=== PATIENT | male | born 1955 | race Caucasian/White ===

== ENCOUNTER 2019-07-08 11:52 | Outpatient (CLI) | payer OTHER ==
[2015-01-12 19:57] VITALS: BP 109/84
[2019-07-19 11:47] LABS: BASOPHILS % 0.7 % (0.0-1.5); BASOPHILS % 1 % (0-2); NEUTROPHILS # 4.6 # k/uL (1.4-7.7); SEGMENTED NEUTROPHILS % 50 % (39-79)
[2019-07-19 11:48] LABS: A1C 13.3 % (<5.7); HDL 44 mg/dL (>40); eGFR (Non-African) > 60
== END 2019-07-08 12:05 ==
LOC: LAB 11:52
PROVIDERS: ATTEND Nurse Practitioner Family
DX: E03.9 Hypothyroidism, unspecified (principal); I10 Essential (primary) hypertension; E11.9 Type 2 diabetes mellitus without complications
CPT/HCPCS: 36415; 80053; 80061; 83036; 84439; 84443; 84481; 85025

== ENCOUNTER 2019-08-22 09:07 | Outpatient (CLI) | payer OTHER ==
[2015-01-12 19:57] VITALS: BP 109/84
--- NOTE | 2019-08-22 16:26 | Diagnostic Imaging Report ---
PATIENT MR#: [id number] PATIENT PATIENT NAME: Moses Kaiser DATE OF : 1955 REFERRING PHYSICIAN: Praveena Garcia EXAM DATE: 08/22/2019 ACCESSION NUMBER: [id number] EXAM DESCRIPTION: C SPINE 4 VIEWS OR MORE HISTORY: CERVICALGIA COMPARISON: No relevant comparison is available at the time of interpretation. C-SPINE XRAY, 7 views including obliques and flexion-extension: Vertebral bodies: No compression deformities. The dens is intact and the lateral masses are symmetric . Disc spaces: Moderate-severe degenerative disc disease at C4-5, C5-6 and C6-7. Alignment: Straightening of the normal cervical lordosis. Minimal grade 1 anterolisthesis of C2 over C3, and C3 over C4. Mild grade 1 retrolisthesis of C4 over C5 which appears stable in flexion extension Neural foramina: Bilateral neural foraminal stenosis at C3-4, C4-5, C5-6 and C6-7 on the basis of fac et arthrosis and degenerative disc disease. IMPRESSION: 1. Straightening of the normal cervical lordosis with grade 1 retrolisthesis of C4 over C5. 2. Degenerative disc disease more pronounced at C4-5, C5-6 and C6-7. 3. Bilateral neural foraminal stenosis at C3-4, C4-5, C5-6 and C6-7. Read by: Dr. Esau Dao Transcribed by: Esau Dao Transcribed Date: 08/22/2019 4:25:13 PM Electronically signed by: Dr. Esau Dao Date signed: 08/22/2019 4:25:31 PM
--- NOTE | 2019-08-22 16:27 | Diagnostic Imaging Report ---
PATIENT MR#: [id number] PATIENT PATIENT NAME: Moses Kaiser DATE OF : 1955 REFERRING PHYSICIAN: Praveena Garcia EXAM DATE: 08/22/2019 ACCESSION NUMBER: [id number] EXAM DESCRIPTION: T SPINE 3 VIEWS HISTORY: LOW THORACIC SPINE PAIN, THORACIC RADICULITIS VS RADICULOPATHY. COMPARISON: No relevant comparison is available at the time of interpretation. T-SPINE XRAY, 3 Views: Vertebral bodies: No compression deformities. Disc spaces: Mild thoracic degenerative disc spondylosis. Alignment: Mild thoracic dextrocurvature. Normal thoracic kyphosis without listhesis. IMPRESSION: Mild thoracic dextrocurvature and mild spondylosis. Read by: Dr. Esau Dao Transcribed by: Esau Dao Transcribed Date: 08/22/2019 4:27:07 PM Electronically signed by: Dr. Esau Dao Date signed: 08/22/2019 4:27:07 PM
--- NOTE | 2019-08-22 16:39 | Diagnostic Imaging Report ---
PATIENT MR#: [id number] PATIENT PATIENT NAME: Moses Kaiser DATE OF : 1955 REFERRING PHYSICIAN: Praveena Garcia EXAM DATE: 08/22/2019 ACCESSION NUMBER: [id number] EXAM DESCRIPTION: L SPINE 6 VIEWS CLINICAL HISTORY: LUMBAGO, LUMBAR RADICULITIS VS RADICULOPATHY. COMPARISON: No relevant comparison is available at the time of interpretation. L-SPINE XRAY, 6 views including obliques and flexion - extension: Vertebral bodies: No compression deformities. Disc spaces: Severe degenerative disc narrowing at L2-3. Moderate-severe degenerative disc narrowing at L3-4 and L4-5. Alignment: Mild-moderate levocurvature centered at L3-4. Straightening of the normal lumbar lordosis. Mild grade 1 anterolisthesis of L2 over L3 which increases slightly with flexion. Mild grade 1 retrolisthesis of L 3 over L4 which is relatively stable in flexion extension. Facets: Degenerative arthrosis at L4-5 and L5-S1. Abdomen: Cholecystectomy clips. 9 mm calcification superimposed over the right renal lower pole. Aorta: Calcifications are noted within the vessels indicating an element of arteriosclerosis. IMPRESSION: 1. Mild-moderate lumbar levocurvature. 2. Grade 1 anterolisthesis of L2 which increases slightly with flexion. 3. Grade 1 retrolisthesis of L3 over L4. 4. Advanced lumbar degenerative disc disease at L2-3, L3-4 and L4-5. 5. Lumbar facet arthrosis. 6. Right nephrolithiasis. Read by: Dr. Esau Dao Transcribed by: Esau Dao Transcribed Date: 08/22/2019 4:39:18 PM Electronically signed by: Dr. Esau Dao Date signed: 08/22/2019 4:39:22 PM
--- NOTE | 2019-08-22 16:42 | Diagnostic Imaging Report ---
PATIENT MR#: [id number] PATIENT PATIENT NAME: Moses Kaiser DATE OF : 1955 REFERRING PHYSICIAN: Praveena Garcia EXAM DATE: 08/22/2019 ACCESSION NUMBER: [id number] EXAM DESCRIPTION: PELVIS AP 1 OR 2 VIEWS HISTORY: PAIN IN LOW BACK COMPARISON: No pertinent prior studies are available at this time. PELVIS XRAY, FRONTAL VIEW: Pelvic bone: Intact appearance. No significant pelvic tilt. Pelvic soft tissue: No calcifications along the expected course of the ureters. Hips: No fracture or dislocation. IMPRESSION: Intact pelvis. Read by: Dr. Esau Dao Transcribed by: Esau Dao Transcribed Date: 08/22/2019 4:41:49 PM Electronically signed by: Dr. Esau Dao Date signed: 08/22/2019 4:41:49 PM
--- NOTE | 2019-08-23 14:54 | OP Clinic Progress Note ---
DATE OF VISIT: 08/22/2019 CHIEF COMPLAINT: Mid-to-low back pain. HISTORY OF PRESENT ILLNESS: Moses Tomlinson" is a 63-year-old male patient here for evaluation of his mid-to-low back pain. The patient tells me that his back pain has been present for approximately the last two years. His pain has been progressively worsening without any known incident starting his pain off. The patient tells me that his back pain is constant, aching, sharp, shooting and burning at times. His pain radiates around to his right ribs and down to bilateral hips. He does have numbness and tingling in bilateral lateral thighs right greater than left as well as bilateral feet numbness and tingling. The patient does complain of bilateral lower extremity weakness and stumbling. He denies any urinary incontinence, bowel incontinence or saddle anesthesia. He has used a cane in the past for assistance, however, lost his cane. His pain is worse with standing or sitting too long. His pain is improved with hot baths and a stretching program that he does daily. The patient has not completed any formal physical therapy in the last year, rather he has continued the home stretching program. His stretching program does help his pain in his low back. The patient has also seen a chiropractor with improvement in his pain symptoms, however, he cannot afford the bhb-an-vltqap cost for this. He was seen at the [facility] and they diagnosed him with an L2 compression fracture. The patient does report that he did fall in October but did not ever seek care. The [facility] apparently did order an MRI however, the patient did not complete this. The patient has not had any other interventional pain procedures to treat his pain. Additional pain areas include neck, left shoulder and bilateral hips. The patient occasionally takes aspirin for his pain symptoms with improvement. PAST MEDICAL HISTORY: Includes back pain, neck pain, depression, type 2 diabetes, fibromyalgia, history of gallbladder disease with subsequent cholecystectomy, GERD, hyperlipidemia and hypothyroidism. PAST SURGICAL HISTORY: Includes the cholecystectomy in 1998 as well as tonsillectomy when he was 9 to 11 years old. FAMILY HISTORY: Mother had cancer, diabetes and hyperlipidemia. Father had cancer, diabetes and hyperlipidemia. SOCIAL HISTORY: The patient is . 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 Tobacco use is current one pack per day times 40 years. ETOH use is occasionally once every two months or so and recreational drug use is current methamphetamine. Last use was one week ago. DRUG ALLERGIES: Include gabapentin which causes suicidal ideation. CURRENT MEDICATIONS: Levothyroxine 50 mcg one p.o. q. day, Humalog insulin 10 units before meals, Lantus 10 units q h.s., atorvastatin 40 mg q day and omeprazole 40 mg p.o. q day. REVIEW OF SYSTEMS: A complete 14-point review of systems was completed and positive for fatigue, weakness, weight loss, decreased appetite, loss of hearing, constant throat clearing, blurry vision, wheezing, night sweats, nausea, heartburn, constipation, stomach pain, hemorrhoids, frequent laxative/enema use, dizziness, leg weakness, sensitivity of feet, ambulation assistance with a cane, back pain, neck pain, joint pain, joint stiffness and joint swelling. OBJECTIVE: General: This is an elderly thin male patient presenting in no acute distress. Vital Signs: The patient is 5 feet 9 inches tall, weighs 154 pounds. Temperature is 98.4, pulse 96, respiratory rate is 18, blood pressure is 107/80 with an SaO2 of 97% on room air. He is rating his pain at 7/10 today. Psych: He is alert and oriented x3. He is calm, pleasant and cooperative. HEENT: He is normocephalic and atraumatic. Pupils are equal and round without miosis. Sclerae clear. Trachea is midline. There is no lymphadenopathy or thyromegaly. Cardiovascular: Normal S1, S2. No murmurs, gallops or rubs. Pulmonary: Nonlabored respirations at rest. Lungs are clear to auscultation throughout, diminished in bilateral posterior bases. GI: Abdomen is soft, nontender and nondistended with bowel sounds present in all four quadrants. : Deferred. Musculoskeletal: The patient achieves full lumbar flexion with pain upon returning to the upright position. He has full lumbar extension with low back pain. Bilateral Maxwell's is positive with axial low back pain only. Bilateral seated slump raise positive for muscle stretching in his hamstrings, but no low back pain or shooting pain. Seated straight leg raise is negative. The patient is tender to palpation about the T11-12, T12-L1, L1-2, L2-3 and L3-4 levels bilaterally. On lower extremity strength testing on the right, his hip flexion is graded 4/5, knee extension is 5/5, knee flexion is 5/5, dorsiflexion is 4/5 and plantar flexion is 5/5. On the left, hip flexion is 5/5, knee extension is 5/5, knee flexion is 5/5, dorsiflexion is 4/5 and plantar flexion is 5/5. He does have decreased sensation in bilateral feet. Gait is very antalgic. Station is slumped forward. There were no obvious deformities on inspection of the cervical, thoracic or lumbar spine. Bilateral patellar reflexes are 1+. Neuro: Cranial nerves II through XII are grossly intact. ASSESSMENT: 1. Lumbago. 2. Lumbar radiculitis versus radiculopathy. 3. Low thoracic spine pain. 4. Thoracic radiculitis versus radiculopathy. 5. Cervicalgia. 6. Diabetes type 2 not controlled. PLAN: 1. I have ordered a lumbar x-ray series to include flexion, extension and obliques. 2. I have ordered an AP pelvis x-ray. 3. I have ordered a thoracic spine x-ray series. 4. I have ordered a C-spine x-ray series to include extension, flexion, obliques and odontoid views. 5. I have ordered an MRI without contrast of the thoracic spine. 6. I have ordered an MRI without contrast of the lumbar spine. 7. The patient is to continue his current home exercise program. 8. The patient is to follow up in one month or sooner if needed. The patient verbalizes understanding and agrees to the current treatment plan. ARIANE Wagnerurse Practitioner /[employer] [id number] jrd cc: Kristopher Ernst MD MTDD
== END 2019-08-22 10:07 | disposition home or self-care (01) ==
LOC: OUT 09:07
PROVIDERS: ATTEND Nurse Practitioner Adult Health
DX: M54.5 Low back pain (principal); M54.6 Pain in thoracic spine; M54.2 Cervicalgia; E11.9 Type 2 diabetes mellitus without complications
CPT/HCPCS: 72050; 72072; 72170; 99213

== ENCOUNTER 2019-09-05 07:56 | Day surgery (SDC) | payer OTHER ==
[2015-01-12 19:57] VITALS: BP 109/84
[2019-09-05] MEDS ORDERED: LACTATED RINGERS 1,000 ML IV.SOLN IV ONE (08:48)
[2019-09-05] MEDS ORDERED: LIDOCAINE HCL 2% PF 100MG/5ML VIAL IJ ONE (08:48)
[2019-09-05] MEDS ORDERED: PROPOFOL 200 MG/20 ML VIAL IV ONE (08:48)
--- NOTE | 2019-09-09 06:30 | GI Report ---
OPERATIVE/PROCEDURE REPORT PATIENT NAME: ADRIAN VERAS DATE OF : 1955 CHART#: [id number] DATE OF PROCEDURE: 09/05/2019 REFERRING PHYSICIAN: Dr. Ernst PROCEDURE PERFORMED: Endoscopy. SURGEON: Daniele Banda M.D., Janki INDICATION FOR PROCEDURE: This 63-year-old man is referred for his first colonoscopy. He does tend towards constipation, and sometimes has to take things. Occasionally there is some blood in the stool. He has never had his colon looked at before. He does have a number of issues including chronic back pain, COPD, chronic smoker. He has had compression fractures of L2. PROCEDURE MEDICATION: Propofol, as per Anesthesia. DESCRIPTION OF PROCEDURE: The Olympus video endoscope was passed through the esophagus under direct visualization. He has grade 2 esophagitis, no obvious Barretts. His stomach was entered. He does have significant gastritis with a number of erosions, superficial ulceration. We did take biopsies. Also, severe duodenitis took biopsies in the duodenum also. The patient tolerated the procedure well. FINDINGS: 1. Severe gastritis, duodenitis. 2. He also has esophagitis. RECOMMENDATIONS: 1. Discontinue smoking tobacco. 2. Take a PPI daily like omeprazole. 3. Follow up biopsies with Dr. Ernst. DANIELE BANDA M.D., F.AugustaCBiancaP. Guevara R: 09/07/19 Job#: [id number] Cc: Dr. Klever SALAZAR
--- NOTE | 2019-09-09 06:37 | GI Report ---
DATE OF PROCEDURE: 09/05/2019 REFERRING PHYSICIAN: Dr. Ernst PROCEDURE PERFORMED: Colonoscopy. SURGEON: Daniele Banda M.D., F.Jennifer.C.P. INDICATION FOR PROCEDURE: This is a screening colonoscopy, though he has had constipation, and occasionally blood in the stool. PROCEDURE MEDICATION: Propofol, as per Anesthesia. DESCRIPTION OF PROCEDURE: On exam he has some prolapsed hemorrhoids, and a lax anal canal. An Olympus video colonoscope was advanced into the rectum and slowly advanced all the way to the cecum. The appendiceal orifice and ileocecal valve were normal. On slow withdrawal the cecum, ascending colon and transverse colon, no obvious intraluminal lesions were noted. Descending colon and sigmoid: Some redundancy. No obvious intraluminal lesions were noted. Retroflexion in the rectum: He does have internal hemorrhoids, and a lax anal sphincter. He has an area of erythema right near the anal canal which is probably an area of prolapse. FINDINGS: 1. Atonic redundant colon. 2. Prolapsed hemorrhoids. RECOMMENDATIONS: 1. Would add Benefiber, MiraLAX or some fiber supplement daily. 2. Recommended he discontinue tobacco usage. 3. Consider relooking at his colon in 10 years, sooner if clinically indicated. DANIELE BANDA M.D., F.A.C.P. MARIZOL/nain R: 09/07/19 Job#: [id number] Cc: Dr. Klever SALAZAR
== END 2019-09-05 10:32 | disposition home or self-care (01) ==
LOC: OPSURG 07:56
PROVIDERS: ATTEND Internal Medicine Gastroenterology
DX: Z12.11 Encounter for screening for malignant neoplasm of colon (principal); K29.70 Gastritis, unspecified, without bleeding; K29.80 Duodenitis without bleeding; K20.9 Esophagitis, unspecified; K64.9 Unspecified hemorrhoids; J44.9 Chronic obstructive pulmonary disease, unspecified; F17.210 Nicotine dependence, cigarettes, uncomplicated
CPT/HCPCS: 43239; 45378; 88305; J2001; J2704; J7120

== ENCOUNTER 2019-09-12 14:20 | Outpatient (CLI) | payer OTHER ==
[2015-01-12 19:57] VITALS: BP 109/84
[2019-09-12 14:38] LABS: A1C 12.3 % (<5.7)
[2019-09-12 15:07] LABS: TSH 47.5 mIU/l (0.465-4.685)
== END 2019-09-12 14:25 ==
LOC: LABRHC 14:20
PROVIDERS: ATTEND Family Medicine
DX: E11.9 Type 2 diabetes mellitus without complications (principal); E03.9 Hypothyroidism, unspecified
CPT/HCPCS: 83036; 84443

== ENCOUNTER 2019-09-20 11:15 | Outpatient (CLI) | payer OTHER ==
[2015-01-12 19:57] VITALS: BP 109/84
--- NOTE | 2019-10-13 16:30 | OP Clinic Progress Note ---
DATE OF VISIT: 09/20/2019 CHIEF COMPLAINT: 1. Mid back pain. 2. Low back pain. HISTORY OF PRESENT ILLNESS: Moses Tomlinson" is a 63-year-old male patient here for followup mid-to-low back pain. The patient has had back pain for approximately the last two years, that has been progressive in nature. There was no known incident to start his pain. The patient describes his pain as constant aching, sharp, shooting, and burning at times. His pain radiates around to his right ribs and also down to bilateral hips. He does have numbness and tingling bilateral lateral thighs, right greater than left as well as bilateral feet numbness and tingling. The patient does complain of bilateral lower extremity weakness and stumbling. He denies any urinary incontinence, bowel incontinence or saddle anesthesia. He has used a cane in the past for ambulatory assistance, however, does not have one at present. His pain is worse with standing or sitting too long. His pain is improved with hot baths and stretching program that he does daily. The patient has also seen a chiropractor in the past with improvement in his symptoms. However, he cannot afford the out of pocket cost to see one at present. Additional pain areas include neck, left shoulder and bilateral hips. The patient occasionally takes aspirin for his pain symptoms with improvement. PFSH: Reviewed from date of service 08/22/2019 and is unchanged. REVIEW OF SYSTEMS: Reviewed from date of service 08/22/2019 and unchanged. IMAGING REVIEWED: AP pelvis x-ray 08/22/2019 at [facility]. Impression: 1. Intact pelvis with no significant pelvic tilt. Lumbar spine x-ray series 08/22/2019 at [facility]. Impression: 1. [id number] lumbar levocurvature. 2. Grade 1 anterolisthesis at L2 which increases slightly with flexion. 3. Grade 1 retrolisthesis of L3 over L4. 4. Advanced lumbar degenerative disc disease at L2-L3, L3-L4, and L4-L5. 5. Lumbar facet arthrosis. 6. Right nephrolithiasis. Thoracic spine 3-view series 08/22/2019 at [facility]. Impression: 1. Mild thoracic dextrocurvature and mild spondylosis. Cervical spine series 08/22/2019 at [facility]. Impression: 1. Straightening of the normal cervical lordosis with grade 1 retrolisthesis of C4 over C5. 2. Degenerative disc disease more pronounced at C4-C5, C5-C6, and C6-C7. 3. Bilateral neural foraminal stenosis at C3-C4, C4-C5, C5-C6, and C6-C7. MRI of the lumbar spine without contrast 08/31/2019 at [facility]. Findings: L5-S1 shallow bulging at the paracentral right with neural foraminal stenosis right greater than left. Mild facet arthropathy. L4-L5 mechanical endplate changes and marrow signal changes, disc bulge and posterior element hypertrophy. Xfhv-[id number] canal stenosis with severe neural foraminal stenosis bilaterally and left lateral recess stenosis. L3-L4 annular bulge with osteophyte and posterior element hypertrophy. There is moderate canal stenosis and neural foraminal stenosis which is severe on right and moderate to moderately severe on the left. L2-L3 broad based annular bulge and posterior element hypertrophy with moderate to moderately severe canal stenosis and fairly severe bilateral neural foraminal stenosis. L1-L2 shallow bulge with [id number]-[id number] neural foraminal encroachment, slightly greater on the left T12-L1, broad based bulge with thecal sac effacement. No neural foraminal stenosis. T11-T12 and T10-T11 both show central shallow bulging. Mechanical endplate changes are present at L2-L3 and L4-L5 predominantly. No acute fractures are evident. MRI thoracic spine without contrast 08/31/2019 at [facility]. Impression: 1. Multilevel disc bulging most prominent at T8-T9, T10-T11, T11-T12, and T12- L1. 2. Cervical disc disease. PHYSICAL EXAMINATION: General: This is an elderly thin male patient presenting in no acute distress. Vital Signs: Temperature is 98, pulse is 88, respiratory rate 18, blood pressure 141/95, with an SaO2 of 100% on room air. Pain is rated 7-8/10. Psych: He is alert and oriented x3. He is calm, pleasant and cooperative. HEENT: He is normocephalic and atraumatic. Pupils are equal and round without miosis. Sclerae clear. Musculoskeletal: The patient has tenderness to palpation over the T7-T8, T8-T9, T9-T10, T10-T11 levels. He also has tenderness to palpation over the L1-L2, L2- L3, and L3-L4 levels bilaterally. There is associated paraspinal muscle tenderness and spasm. Neurologic: Cranial nerves II through XII are grossly intact. The patient walks with a mildly antalgic gait. ASSESSMENT: 1. Thoracic spine pain. 2. Thoracic radiculitis likely related to facet arthrosis. 3. Thoracic facet arthrosis. 4. Thoracic DDD. 5. Lumbago. 6. Lumbar DDD. 7. Lumbar facet arthropathy. 8. Lumbar radiculopathy. 9. Lumbar spinal stenosis with neurogenic claudication. PLAN: 1. His thoracic spine pain is predominant; therefore, we will start with facet joint injections at the T7-T8, T8-T9, and T9-T10 levels with Dr. Gomez. (Dr. Gomez to verify day of procedure). 2. The patient is to continue his home exercise program and conservative care. 3. I prescribed meloxicam 7.5 mg p.o. b.i.d. with food, dispense #60 with no refills and Flexeril 10 mg t.i.d. p.r.n. muscle spasms, dispense #90 with no refills. 4. The patient is to follow up two to four weeks after the injection to magistrate judge efficacy and to determine future plan of care. The patient verbalizes understanding and agrees to the current treatment plan. Praveena Garcia NP Nurse Practitioner jrd cc: Kristopher Ernst MD MTDD
== END 2019-09-20 11:55 ==
LOC: OUT 11:15
PROVIDERS: ATTEND Nurse Practitioner Adult Health
DX: M51.14 Intervertebral disc disorders with radiculopathy, thoracic region (principal); M47.894 Other spondylosis, thoracic region; M51.16 Intervertebral disc disorders with radiculopathy, lumbar region; M47.896 Other spondylosis, lumbar region; M48.062 Spinal stenosis, lumbar region with neurogenic claudication
CPT/HCPCS: 99214

== ENCOUNTER 2019-10-04 11:43 | Outpatient (CLI) | payer OTHER ==
[2015-01-12 19:57] VITALS: BP 109/84
[~2019-10-04 11:43] MED LIST: 0.9 % SODIUM CHLORIDE PF 10 ML VIAL IJ ONE; IOHEXOL 300 MG/ML BOTTLE 50 ML ONE; Lidocaine 1% 5ml 10 MG/ML VIAL ONE; TRIAMCINOLONE ACETONID 40MG/ML VIAL ONE
--- NOTE | 2019-10-06 13:12 | Operative Note ---
PROCEDURE DATE: 10/04/2019 PREOPERATIVE DIAGNOSIS: Lumbosacral radiculopathy secondary to severe spinal canal stenosis at L2-3, neurogenic claudication. POSTOPERATIVE DIAGNOSIS: Lumbosacral radiculopathy secondary to severe spinal canal stenosis at L2-3, neurogenic claudication. PROCEDURE(S) PERFORMED: Interlaminar epidural steroid injection under fluoroscopic guidance, CPT Code# 76221. SURGEON: Hai Keller M.D. INDICATION FOR PROCEDURE: 63-year-old with history of generalized low back and left hip pain. Also, history of bilateral lower extremity numbness. Imaging studies of the lumbar and thoracic spine were reviewed. The patient has significant degenerative disc disease throughout the thoracic spine with Modic endplate changes. However, MRI of the lumbar spine was significant for severe spinal canal stenosis at L2-3. The patient has evidence of left-sided hip pain, lower extremity pain and occasionally has numbness and tingling which he states has been persisting for several years. On examination, he has tenderness to palpation along the lumbar spine. Positive straight leg raising test on the left with positive dural stretch. Pain relieved by forward flexion, exacerbated by extension. Plan lumbar epidural steroid injection under fluoroscopic guidance. DESCRIPTION OF PROCEDURE: After informed consent was obtained and the risks and benefits of the procedure were explained to the patient including but not limited to the possibility of paresthesias, infection and bleeding the patient verbalized appropriate understanding of risks and agreed to proceed. The patient was taken to the treatment room and placed prone on the examination table. Under aseptic technique the back was prepped and draped in sterile fashion. Under fluoroscopic guidance the L2-3 interspace was identified and a 20 gauge 3-1/2 inch epidural needle was placed in the posterior portion of the epidural space at L2-3. Under live lateral fluoroscopic guidance, Isovue 300M contrast was injected and there was spread in a normal epidural pattern following which time 80 mg of triamcinolone diacetate together with 6 mL of preservative-free normal saline was injected in the posterior portion of the epidural space. The patient tolerated the procedure well without side effects. He was recovered for an appropriate time in the recovery area and scheduled to follow back up with us in approximately 1 month. HAI KELLER M.D. (Please copy [facility] provider when applicable) Geovany JOB#: [id number] MTDD
== END 2019-10-04 12:42 | disposition home or self-care (01) ==
LOC: OUT 11:43
PROVIDERS: ATTEND Anesthesiology Pain Medicine
DX: M54.17 Radiculopathy, lumbosacral region (principal); M48.062 Spinal stenosis, lumbar region with neurogenic claudication
CPT/HCPCS: 62323; J3301

== ENCOUNTER 2019-10-08 09:46 | Inpatient (IN) | payer OTHER ==
[2019-10-08] MEDS ORDERED: 0.9 % SODIUM CHLORIDE 1,000 ML IV ONE ×3 (09:52→15:08)
[2019-10-08] MEDS ORDERED: GUM MASTIC/STORAX/MSAL/ALCOHOL 1 EACH DROPERETTE TP ONE (10:14)
--- NOTE | 2019-10-08 10:16 | ED Physician Documentation ---
General Adult - HISTORIAN Historian: patient - HPI Stated Complaint: dizzy Chief Complaint: General Adult Additional Information: Patient presents to ED with a 4 day history of dizziness and loss of appetite. He states his symptoms began after he had injections in his back by pain management on 10/04/19. He is diabetic and his blood sugars have been running 300-400. He denies fever, chills, cough, nausea/vomiting, diarrhea. He has COPD, chronic back pain, drinks alcohol daily, hypothyroidism. Onset: days ago (4) Timing: still present Severity: moderate - ROS CONST: denies: fever EYES/ENT: denies: problems with vision CVS/RESP: shortness of breath (chronic). denies: chest pain GI/: denies: abdominal pain, vomiting, nausea, diarrhea MS/SKIN/LYMPH: none NEURO/PSYCH: dizziness. denies: headache - PAST HX Past History: COPD Allergies/Adverse Reactions: Allergies Allergy/AdvReac Type Severity Reaction Status Date / Time No Known Allergies Allergy Verified 01/12/15 19:58 Home Medications: Ambulatory Orders Medication Instructions Recorded NK 01/12/15 - SOCIAL HX Smoking History: cigarettes, greater than 1 pack/day Alcohol Use: heavy - FAMILY HX Family History: No - VITAL SIGNS Vital Signs: Vital Signs Temp Pulse Resp BP Pulse Ox 109/84 01/12/15 20:51 - REVIEWED ASSESSMENTS Nursing Assessment Reviewed: Yes Vitals Reviewed: Yes Progress - Progress Progress: 1235 Discussed with Elida Barr, DISPATCHER CHIEF OIL. Agrees with admission. - EKG/XRAY/CT Comments: 1019 Sinus Tachy 119 bpm ED Results Lab/Radiology - Lab Results Lab Results: Lab Results 10/08/19 10:00 WBC 16.50 K/ul H K/ul (4.00-12.00) RBC 6.67 M/ul H M/ul (3.90-5.20) Hgb 17.7 g/dL g/dL (12.0-18.0) Hct 55.8 % H % (37.0-53.0) MCV 84.0 fl fl (80.0-100.0) MCH 26.6 pg L pg (28.0-34.0) MCHC 31.7 g/dL g/dL (30.0-36.0) RDW 12.0 % % (11.3-14.3) Plt Count 360 K/mm3 K/mm3 (130-400) Neut % (Auto) Pending Lymph % (Auto) Pending [place] % (Auto) Pending Eos % (Auto) Pending Baso % (Auto) Pending Neut # (Auto) Pending Lymph # (Auto) Pending [place] # (Auto) Pending Eos # (Auto) Pending Baso # (Auto) Pending Venous Blood gas - pH 7.33, PCO2 40, pO2 52, Na 137, K 5.3, Glu >750, UA - +3 glucose, Bilirubin jhonny, sp gravity 1.010, blood neg, protein neg, nitrate neg, leukocyte neg - Radiology Radiology Impressions: Report Submission Date: Oct 08, 2019 11:58:50 AM SENIOR TAX SPECIALIST Patient Study Name: ADRIAN VERAS Date: Oct 08, 2019 9:50:53 AM SENIOR TAX SPECIALIST Modality Type: DX Gender: M Description: CHEST 2VIEW : 57 Institution: [facility] Physician: TOD KANG 2 views of the chest Clinical history: Dizziness Findings: The heart size is normal. The pulmonary vasculature is normal. No pleural effusion, pneumothorax or alveolar consolidation. There is air trapping Impression: No acute disease in the chest Electronically signed on Oct 08, 2019 11:58:50 AM SENIOR TAX SPECIALIST by: Carlos Arizmendi - Orders Orders: ED Orders Category Date Time Status Place IV Lock 1T Care 10/08/19 09:52 Active CHEST 2VIEW [RAD] Stat Exams 10/08/19 Ordered ALCOHOL MEDICAL USE ONLY Stat Lab 10/08/19 10:00 Received CBC/PLATELET/DIFF Routine Lab 10/08/19 10:00 Received CMP Routine Lab 10/08/19 10:00 Received TROPONIN I Stat Lab 10/08/19 10:00 Received TSH Stat Lab 10/08/19 Ordered VENOUS BLOOD GAS Stat Lab 10/08/19 Ordered 0.9 % Sodium Chloride [Normal Saline] 1,000 ml Med 10/08/19 09:52 Active IV NOW Oxygen Daily Oxygen 10/08/19 10:15 Ordered EKG WITH COMPARISON Stat Ther 10/08/19 Ordered General Adult Physical Exam - PHYSICAL EXAM GENERAL APPEARANCE: no distress EENT: ALAYNA, dry mucous membranes NECK: supple RESPIRATORY: no resp distress, breath sounds normal CVS: reg rate & rhythm ABDOMEN: soft, normal bowel sounds, non-tender BACK: normal inspection SKIN: warm/dry, normal color EXTREMITIES: non-tender, edema NEURO: oriented X3, mood/affect nml Discharge Clincal Impression: Dehydration, Elevated TSH Hyperglycemia due to type 2 diabetes mellitus Qualifiers: Diabetes mellitus ferry terminal supervisor insulin use: with ferry terminal supervisor use Qualified Code(s): E11.65 - Type 2 diabetes mellitus with hyperglycemia; Z79.4 - longterm (current) use of insulin Comments: Will admit, Acute to [facility] Weekly Condition: Stable Disposition: 09 ADMITTED INPATIENT Decision to Admit: [id number] Date of Decison to Admit: 10/08/19 Decision Time: 12:35
[2019-10-08] MEDS ORDERED: ONDANSETRON HCL/PF 4 MG/ 2ML VIAL ONE (10:36)
[2019-10-08] MEDS ORDERED: ONDANSETRON HCL/PF 4 MG/ 2ML VIAL IVP ONE (10:41)
[2019-10-08] MEDS ORDERED: INSULIN REGULAR, HUMAN 100 UNIT/ML 10ML VIAL IV ONE ×3 (10:41→12:27)
[2019-10-08 10:58] LABS: eGFR (Non-African) > 60
--- NOTE | 2019-10-08 12:04 | Diagnostic Imaging Report ---
PATIENT MR#: [id number] PATIENT PATIENT NAME: Moses Kaiser DATE OF : 1955 REFERRING PHYSICIAN: Elba Crocker EXAM DATE: 10/08/2019 ACCESSION NUMBER: [id number] EXAM DESCRIPTION: CHEST 2VIEW 2 views of the chest Clinical history: Dizziness Findings: The heart size is normal. The pulmonary vasculature is normal. No pleural effusion, pneumothorax or a lveolar consolidation. There is air trapping Impression: No acute disease in the chest Read by: Dr. Carlos Arizmendi Transcribed by: Transcribed Date: Electronically signed by: Dr. Carlos Arizmendi Date signed: 10/08/2019 12:03:37 PM
[2019-10-08 12:05] LABS: TSH 31.6 mIU/l (0.465-4.685)
[2019-10-08] MEDS ORDERED: IPRATROPIUM/ALBUTEROL SULFATE 3 ML AMPUL.NEB NEB PRN (13:06)
[2019-10-08] MEDS: INSULIN REGULAR, HUMAN 100 UNIT/ML 10ML VIAL SQ SCH ×3 (14:10→21:11)
[2019-10-08] MEDS: INSULIN GLARGINE,HUM.REC.ANLOG 100 UNIT/ML PEN.INJCTR SQ SCH ×2 (14:15→21:16)
[2019-10-08] MEDS ORDERED: NICOTINE 14mg PATCH.TD24 TD PRN (14:30)
--- NOTE | 2019-10-08 15:08 | History and Physical Report ---
History of Present Illnes - History of Present Illness Reason for Visit: Hyperglycemia History of Present Illness: 63 year old male was admitted through the ER with a 4 day history of feeling dizzy, blurred vision, and loss of appetite. He states that symptoms started after he got a steroid injection to his back last week on 10/04/19. He states that his blood sugars normally run between 300-400. He denied any fever, chills, cough, nausea, vomiting or diarrhea. Blood sugar in the ER reported > 900 with pH of 3.5 and ketones and glucose noted in urine. He received a couple of liters of Normal Saline IV and several doses of insulin bringing his blood sugar down <600 and was admitted to the unit. During my visit with patient; it is unclear if patient is taking his insulin; he keeps changing his story as to when he last checked his blood sugar. He states that he does not have any supplies; however I seen patient in the clinic on 07/29/19 and initially started him on insulin d/t noncompliance with metformin d/t diarrhea. We assisted him with getting his glucometer, strips, lancets, and insulin pen (he says that he does not have this- he brought everything into the clinic in July- JOB PLACEMENT SPECIALIST demonstrated how to use everything and how to inject insulin)- patient then said "yes, I still have my supplies". Patient does not appear to be truthful with his answers. Explained to patient that it is extremely important that he is honest- explained to patient "if you don't have meds or supplies- I need to know so I can help you get more"- patient states that he has supplies and is taking his insulin- this cannot be correct. Patient states his water was turned off- discussed with patient going to a care home- he refuses (we attempted care home placement in July- he even med with data base administrator at care home but refused because he did not want to give up his money). Patient admits to occasional meth use and alcohol use. He knows that this will affect his health especially with his diabetes- Patient states "I don't care". - Past Medical History Pulmonary: COPD Gastrointestinal: Constipation Psych: Addictions (Alcohol/Meth) Musculoskeletal: Chronic low back pain Endocrine: Diabetes (Uncontrolled; Insulin), Hypothyroidism - Past Surgical History Past Surgical History: Cholecystectomy - Past Social History Smoke: 1 pack per day Alcohol: Heavy Drugs: Other (Meth) Lives: Alone Domestic Violence: Negative - Health Maintenance Health Maintenance: Cholesterol, Colonoscopy (09/05/19), Other (Patient is being treated in the pain clinic for chronic low back pain) Influenza Vaccine: No Pneumonia Vaccine: No Resuscitation Status: Resusciation Status Resuscitation Status Full Code Review of Systems - Review of Systems Constitutional: Weakness. negative: Fever, Chills Eyes: vision change (blurred vision) ENT: negative: Nose Pain, Throat Pain Respiratory: Cough. negative: Shortness of Breath Cardiovascular: Light Headedness. negative: Chest Pain, Edema Gastrointestinal: Constipation (last BM 4-5 days ago). negative: Nausea, Vomiting Genitourinary: negative: Dysuria Musculoskeletal: Back Pain Skin: negative: Rash Neurological: Weakness - Medications/Allergies Allergies/Adverse Reactions: Allergies Allergy/AdvReac Type Severity Reaction Status Date / Time No Known Allergies Allergy Verified 01/12/15 19:58 Home Medications: Home Medications Atorvastatin Calcium 40 mg PO DAILY 10/08/19 Cyclobenzaprine HCl [Flexeril] 10 mg PO TID 10/08/19 Insulin Aspart [Novolog Flexpen] 10 unit SQ AC30 10/08/19 Insulin Glargine,Hum.rec.anlog [Lantus Solostar] 10 unit SQ HS 10/08/19 Melatonin 10 mg PO HS 10/08/19 Meloxicam 7.5 mg PO BID 10/08/19 Omeprazole 2 cap PO DAILY 10/08/19 Current Inpatient Medications: Current Inpatient Medications Albuterol/Ipratropium (Duoneb) 3 ml NEB Q4 PRN PRN Reason: Wheezing Stop: 11/07/19 13:05 Heparin Sodium (Porcine) (Heparin) 5,000 unit SQ Q12 [facility] Stop: 11/07/19 20:59 Sodium Chloride (Normal Saline) 1,000 mls @ 150 mls/hr IV Q10H [facility] Stop: 11/07/19 13:14 Insulin Glargine (Basaglar Kwik-Pen) 10 unit SQ Q12 [facility]ON Stop: 11/07/19 13:59 Last Admin: 10/08/19 14:15 Dose: 10 units Insulin Human Regular (Novolin R) 0 unit SQ CHEMQID [facility]; Protocol Stop: 11/07/19 16:59 Last Admin: 10/08/19 14:10 Dose: 14 units Levothyroxine Sodium (Synthroid) 50 mcg PO 0700 [facility] Stop: 11/08/19 06:59 Miscellaneous (Chem Sticks) 1 each CHEMQID [facility]; Protocol Stop: 11/07/19 16:59 Nicotine (Habitrol 14mg) 1 patch TD DAILY PRN PRN Reason: Smoking Cessation Stop: 11/07/19 14:59 Exam - Exam Vital Signs: Vital Signs (72 hours) 10/08/19 10/08/19 09:48 13:07 Temperature 96.3 F L Pulse Rate [ 85 116 H Pulse ox] Respiratory 26 H 19 Rate Blood Pressure 127/100 136/85 [Right Arm] O2 Sat by Pulse 92 96 Oximetry General: Alert, Oriented to Person, Oriented to Place, Oriented to Time, Cooperative, No acute distress, Thin HEENT: Atraumatic, PERRLA, Other (dry mucous membranes) Neck: Normal Range of Motion Carotids: No bruit Lungs: Clear to auscultation, Normal air movement, Speaks full Sentences Cardiovascular: Normal S1, Normal S2, Tachycardia Peripheral Edema: None Peripheral Pulses: 2+ Abdomen: Normal bowel sounds, Decreased Bowel Sounds Integumentary: Normal, [place], Warm, Dry, Decreased Turgor Extremities: Normal pulses, No tenderness/swelling Neurological: Normal gait, Normal speech, Strength Equal Bilat, Sensation intact Psych/Mental Status: Mental status NL, Mood NL, Appropriate Affect, Intact Judgment - Laboratory Results Laboratory Results: Laboratory Results 10/08/19 10/08/19 10/08/19 10:00 10:00 10:00 WBC 16.50 H RBC 6.67 H Hgb 17.7 Hct 55.8 H MCV 84.0 MCH 26.6 L MCHC 31.7 RDW 12.0 Plt Count 360 Neut % (Auto) Not Reportable Lymph % (Auto) Not Reportable Taney % (Auto) Not Reportable Eos % (Auto) Not Reportable Baso % (Auto) Not Reportable Neut # (Auto) 12.0 H Lymph # (Auto) 2.9 Taney # (Auto) 1.3 H Eos # (Auto) 0.1 Baso # (Auto) 0.2 Seg Neutrophils % Not Reportable Sodium 136 L Potassium 5.6 H Chloride 100 Carbon Dioxide 18 L Anion Gap 23.6 BUN 48 H Creatinine 0.95 Estimated Creat Clear 77 Est GFR ( Amer) > 60 Est GFR (Non-Af Amer) > 60 Glucose 974 H* Lactate Calcium 10.1 Total Bilirubin 0.7 AST 63 H ALT 79 H Alkaline Phosphatase 175 H Troponin I < 0.012 L Total Protein 7.4 Albumin 4.5 TSH Ethyl Alcohol < 10.0 10/08/19 10/08/19 10:23 12:00 WBC RBC Hgb Hct MCV MCH MCHC RDW Plt Count Neut % (Auto) Lymph % (Auto) Taney % (Auto) Eos % (Auto) Baso % (Auto) Neut # (Auto) Lymph # (Auto) Taney # (Auto) Eos # (Auto) Baso # (Auto) Seg Neutrophils % Sodium Potassium Chloride Carbon Dioxide Anion Gap BUN Creatinine Estimated Creat Clear Est GFR ( Amer) Est GFR (Non-Af Amer) Glucose 672 H* Lactate 2.7 H Calcium Total Bilirubin AST ALT Alkaline Phosphatase Troponin I Total Protein Albumin TSH 31.600 H Ethyl Alcohol Assessment/Plan - Assessment/Plan (1) Dehydration Status: Acute Assessment: Dry mucous membranes; poor skin turgor Plan: Will give another 1 liter bolus of NS and then 150ml/hr (2) Elevated TSH Status: Acute Assessment: Stable Plan: Will give patient his levoxyl as directed; patient has not been taking- later, states he has; I don't believe this to be correct (3) Hyperglycemia due to type 2 diabetes mellitus Status: Acute Qualifiers: Diabetes mellitus terminal carman insulin use: with penitentiary use Qualified Code(s): E11.65 - Type 2 diabetes mellitus with hyperglycemia; Z79.4 - rat exterminator (current) use of insulin Assessment: Patient presented to ER with blood sugar > 900; upon admission blood sugar is <600; pH 7.35; patient is dehydrated Plan: Will continue with SSI every 4 hours; blood sugar check every 2 hours; IVF will continue; we will continue with his long acting insulin as well. VTE Assessment - RISK FACTOR SCORE VTE RISK FACTOR SCORES: AGE OVER 60 YEARS, SMOKER, OTHER (Uncontrolled DM, Meth Use, Alcohol use) - RISK VTE HIGH RISK: SCORE OF 3-4 (RISK PROXIMAL DVT 4-8%) PROPHYLAXIS NEEDED (Heperain BID)
[2019-10-08] MEDS: 0.9 % SODIUM CHLORIDE 1,000 ML IV SCH ×3 (15:45→23:30)
[2019-10-08 16:09] VITALS: BMI 48.6
--- NOTE | 2019-10-08 16:34 | Diagnostic Imaging Report ---
PATIENT MR#: [id number] PATIENT PATIENT NAME: Moses Kaiser DATE OF : 1955 REFERRING PHYSICIAN: Elida Stock EXAM DATE: 10/08/2019 ACCESSION NUMBER: [id number] EXAM DESCRIPTION: ABDOMEN 1VIEW EXAMINATION: ABDOMEN 1VIEW HISTORY: constipation (Hx) / Note time : 10/08/2019 4:15:00 PM User : Too Rogel constipation no prior films for comparison --------- (DICOM Hx) (DICOM Hx) COMPARISON: None FINDINGS: There are no abnormally dilated bowel loops. There is retained stool throughout the colon. The visibl e osseous structures are intact. IMPRESSION: No evidence of bowel obstruction. Retained stool. Read by: Tico Justice Transcribed by: Transcribed Date: Electronically signed by: Tico Justice Date signed: 10/08/2019 4:33:42 PM
[2019-10-08 16:38] LABS: eGFR (Non-African) > 60
[2019-10-08] MEDS ORDERED: MAGNESIUM CITRATE 296 ML BOTTLE PO ONE ×2 (17:06→17:18)
[2019-10-08 18:27] LABS: APPEARANCE,URINE CLEAR (CLEAR); COLOR,URINE YELLOW (YELLOW); OCCULT BLOOD,URINE NEGATIVE (NEGATIVE); PH URINE 5.5 (5.0 - 8.0); UROBILINOGEN URINE 0.2 Eu (0.2-1.0)
[2019-10-08 20:30] LABS: eGFR (Non-African) > 60
[2019-10-08] MEDS ORDERED: INSULIN REGULAR, HUMAN 100 UNIT/ML 10ML VIAL SQ SCH (21:00)
[2019-10-08] MEDS: HEPARIN SODIUM 5000 UNIT/1 ML SQ SCH (21:07)
[2019-10-08] MEDS: SODIUM CHLORIDE 0.9 % (FLUSH) 10 ML DISP.SYRIN IV SCH (21:18)
[2019-10-09] MEDS: INSULIN REGULAR, HUMAN 100 UNIT/ML 10ML VIAL SQ SCH ×2 (00:56→05:05)
[2019-10-09] MEDS: 0.9 % SODIUM CHLORIDE 1,000 ML IV SCH (06:00)
[2019-10-09] MEDS ORDERED: LEVOTHYROXINE SODIUM 50 MCG TABLET PO SCH (07:00)
[2019-10-09 07:25] LABS: eGFR (Non-African) > 60
[2019-10-09] MEDS ORDERED: INSULIN REGULAR, HUMAN 100 UNIT/ML 10ML VIAL SQ SCH (07:30)
[2019-10-09 08:06] LABS: SEGMENTED NEUTROPHILS % 79 % (39-79)
[2019-10-09 08:07] LABS: HYPOCHROMASIA 1+ (NEGATIVE)
[2019-10-09 08:38] LABS: SEGMENTED NEUTROPHILS % 70 % (39-79)
[2019-10-09] MEDS: INSULIN GLARGINE,HUM.REC.ANLOG 100 UNIT/ML PEN.INJCTR SQ SCH (09:15)
[2019-10-09] MEDS: HEPARIN SODIUM 5000 UNIT/1 ML SQ SCH (09:17)
[2019-10-09] MEDS: SODIUM CHLORIDE 0.9 % (FLUSH) 10 ML DISP.SYRIN IV SCH (09:17)
[2019-10-09] MEDS ORDERED: FLU VACC QUAD 2019-20/PF 60 MCG/0.5 ML SYRINGE IM ONE ×2 (09:21→09:55)
[2019-10-09] MEDS ORDERED: PNEUMOCOCCAL 23-VAL IM ONE ×2 (09:21→09:55)
--- NOTE | 2019-10-09 09:22 | Discharge Summary ---
Discharge Summary - Discharge [facility] Admission Date: 10/08/19 Discharge Date: 10/09/19 Discharge To: Home History of Present Illness: 63 year old male was admitted through the ER with a 4 day history of feeling dizzy, blurred vision, and loss of appetite. He states that symptoms started after he got a steroid injection to his back last week on 10/04/19. He states that his blood sugars normally run between 300-400. He denied any fever, chil ls, cough, nausea, vomiting or diarrhea. Blood sugar in the ER reported > 900 with pH of 3.5 and ketones and glucose noted in urine. He received a couple of liters of Normal Saline IV and several doses of insulin bringing his blood sugar down <600 and was admitted to the unit. During my visit with patient; it is unclear if patient is taking his insulin; he keeps changing his story as to when he last checked his blood sugar. He states that he does not have any supplies; however I seen patient in the clinic on 07/29/19 and initially started him on insulin d/t noncompliance with metformin d/t diarrhea. We assisted him with getting his glucometer, strips, lancets, and insulin pen (he says that he does not have this- he brought everything into the clinic in July- PULPWOOD DEALER demonstrated how to use everything and how to inject insulin)- patient then said "yes, I still have my supplies". Patient does not appear to be truthful with his answers. Explained to patient that it is extremely important that he is honest- explained to patient "if you don't have meds or supplies- I need to know so I can help you get more"- patient states that he has supplies and is taking his insulin- this cannot be correct. Patient states his water was turned off- discussed with patient going to a assisted- he refuses (we attempted assisted placement in July- he even med with branch administrator at assisted but refused because he did not want to give up his money). Patient admits to occasional meth use and alcohol use. He knows that this will affect his health especially with his diabetes- Patient states "I don't care". Condition at Discharge: Stable Home Medications: Ambulatory Orders Medication Instructions Recorded Atorvastatin Calcium 40 mg PO DAILY 10/08/19 Cyclobenzaprine HCl [Flexeril] 10 mg PO TID 10/08/19 Insulin Aspart [Novolog Flexpen] 10 unit SQ AC30 10/08/19 Insulin Glargine,Hum.rec.anlog 10 unit SQ HS 10/08/19 [Lantus Solostar] Melatonin 10 mg PO HS 10/08/19 Meloxicam 7.5 mg PO BID 10/08/19 Omeprazole 2 cap PO DAILY 10/08/19 Consultations this Visit: None Procedures this Visit: None Allergies/Adverse Reactions: Allergies Allergy/AdvReac Type Severity Reaction Status Date / Time No Known Allergies Allergy Verified 01/12/15 19:58 Discharge Summary: Patient is feeling much better this morning; blood sugars down in the 200s; he would like to go home today; he states that he has All his glucometer supplies and insulin; he states that he does not need refills on anything; he will call the clinic on Thursday and schedule follow up appointment with PCP. Hospital Course: IVFs, Insulin, blood sugar monitoring - Final Diagnosis (1) Dehydration Problems: Corrected Right or Left: Right (2) Elevated TSH Problems: patient stated he has levoxyl at home; does not need refill; knows to take it on an empty stomach Right or Left: Right (3) Hyperglycemia due to type 2 diabetes mellitus Problems: Stable, down in the 200s Right or Left: Right
[2019-10-09 10:08] VITALS: BP 134/84
== END 2019-10-09 10:35 | disposition home or self-care (01) | DRG 641 ==
LOC: ED 09:46 → SOUTH 12:54
PROVIDERS: ADMIT Family Medicine; ATTEND Nurse Practitioner Family
PROC: 3E0234Z Introduction of Serum, Toxoid and Vaccine into Muscle, Percutaneous Approach (ICD-10-PCS; principal; 2019-10-09)
PROC: 3E02340 Introduction of Influenza Vaccine into Muscle, Percutaneous Approach (ICD-10-PCS; 2019-10-09)
DX: E86.0 Dehydration (principal); E11.65 Type 2 diabetes mellitus with hyperglycemia; J44.9 Chronic obstructive pulmonary disease, unspecified; E03.9 Hypothyroidism, unspecified; G89.29 Other chronic pain; F17.210 Nicotine dependence, cigarettes, uncomplicated; M54.5 Low back pain; Z79.1 Long term (current) use of non-steroidal anti-inflammatories (NSAID); Z79.4 Long term (current) use of insulin; Z79.899 Other long term (current) drug therapy; Z90.49 Acquired absence of other specified parts of digestive tract; Z79.890 Hormone replacement therapy; Z23 Encounter for immunization
CPT/HCPCS: 36415; 74018; 80048; 80053; 80320; 81002; 82805; 82947; 83605; 84443; 84484; 85025; 90732; 93005; 99221; 99238; J1644; J2405; G0480; J1815; J7030; S1016